=== PATIENT | male | born 1950 | race Caucasian/White ===

== ENCOUNTER 2019-03-26 11:14 | Outpatient (CLI) | payer OTHER | END 2019-03-26 11:15 | disposition home or self-care (01) | LOC: CTENTCT 11:14 → EDSTATUS 16:40 | PROVIDERS: ATTEND Specialist | DX: J32.9 Chronic sinusitis, unspecified (principal) | CPT/HCPCS: 70486 ==

== ENCOUNTER 2019-04-08 07:51 | Day surgery (SDC) | payer OTHER ==
[2019-04-07 13:03] VITALS: BMI 29.0
[2019-04-08] MEDS ORDERED: AFRIN NASAL MIST 15 ML BOT ONE (09:30)
[2019-04-08 09:47] LABS: Hemoglobin 18.7 g/dL (14.0-18.0); Platelet Count 181 thou/uL (130-400)
[2019-04-08] MEDS ORDERED: Midazolam HCl 2 mg/2 ml Vial ONE (09:48)
[2019-04-08] MEDS ORDERED: Bacitracin Zinc Ointment 30 gm TUBE ONE (09:59)
[2019-04-08] MEDS ORDERED: Lidocaine 1% w/Epinephrine 1:100K 20 ML VIAL ONE (09:59)
[2019-04-08] MEDS ORDERED: EPINEPHrine 1 MG/ML AMP ONE (09:59)
[2019-04-08 10:06] LABS: Anion Gap 15 mmol/L (10-20); BUN (Urea Nitrogen) 6 mg/dL (8.4-25.7); Calc. Creatinine Clearance 126 mL/min (70-130); Calcium 10.3 mg/dL (7.8-10.44); Carbon Dioxide 30 mmol/L (23-31); Chloride 95 mmol/L (98-107); Estimated GFR-MDRD Greater than 90; Glucose 149 mg/dL (80-115); Potassium 3.2 mmol/L (3.5-5.1); Sodium 137 mmol/L (136-145)
[2019-04-08] MEDS ORDERED: Fentanyl 100 MCG/2 ML VIAL ONE ×3 (10:10→11:41)
[2019-04-08] MEDS ORDERED: Propofol 500 MG/50 ML VIAL ONE (10:36)
[2019-04-08] MEDS ORDERED: Ondansetron PF 4 MG/2 ML Vial ONE (10:57)
[2019-04-08] MEDS ORDERED: Rocuronium Bromide 10 MG/ML (10ML VIAL) ONE (10:57)
[2019-04-08] MEDS ORDERED: PROPOFOL 200 MG/20 ML VIAL ONE (10:57)
[2019-04-08] MEDS ORDERED: Lidocaine 1% PF 5 ML VIAL ONE (10:57)
[2019-04-08] MEDS ORDERED: PHENYLEPHRINE-NS 100 MCG/ML 10 ML SYRINGE ONE (10:57)
[2019-04-08] MEDS ORDERED: Glycopyrrolate 0.2 MG/ML 5 ML SYRINGE ONE (10:57)
[2019-04-08] MEDS ORDERED: Dexamethasone 20 MG/5 ML VIAL ONE (10:57)
--- NOTE | 2019-04-08 14:17 | OP ---
DATE OF PROCEDURE: 04/08/2019 PREOPERATIVE DIAGNOSES: 1. Deviated septum. 2. Hypertrophic inferior turbinates. 3. Bilateral vocal cord lesions. POSTOPERATIVE DIAGNOSES: 1. Deviated septum. 2. Hypertrophic inferior turbinates. 3. Bilateral vocal cord lesions. PROCEDURES PERFORMED: 1. Bilateral nasal endoscopy with submucosal resection of inferior turbinates. 2. Septoplasty. 3. Microsuspension laryngoscopy with vocal cord biopsy and shaving of laryngeal mass using microscopic visualization. DESCRIPTION OF PROCEDURE: SEPTOPLASTY: After local anesthesia was infiltrated into the submucoperichondrial plane, a standard Ramesh incision was made with a #15 blade down to the level of the septal cartilage. The caudal elevator was used to elevate the mucoperichondrium from the underlying cartilage. We then proceeded beyond the bony cartilaginous junction and elevated the bony periosteum as well. Great attention was paid to the spur to prevent rent formation in the septal flap. A transcartilaginous incision was then made, while preserving an adequate dorsal and caudal cartilaginous strut for tip support. The deformed cartilage was removed and disarticulated from the bony cartilaginous junction and maxillary crest. This was placed in saline and would later be crushed and returned to the mucoperichondrial envelope. We then elevated the contralateral periosteum from the bony cartilaginous region and removed the deformed portions of the bone and bony spurs. The cartilage was then crushed and placed back into the mucoperichondrial envelope and the mucosa was re-approximated with a quilting stitch composed of rapidly absorbent gut suture. The Ramesh incision was also closed with interrupted gut suture. At the completion of the case, Mei splints were placed and suture secured to the caudal septum. BILATERAL NASAL ENDOSCOPY WITH SUBMUCOSAL RESECTION OF INFERIOR TURBINATES: After consent was obtained, the patient was identified, brought to the operating room, and placed on the operating room table in the supine position. Consent was obtained, notifying the patient of the possibility of additional infections, bleeding, brain injury, and eye/orbital injury. The patient was placed on the operating room table, and general endotracheal anesthesia and intravenous access was obtained. The patient was then positioned, prepped and draped for endoscopic sinus surgery. Nasal preparation included trimming nasal vestibular hairs and spraying in topical Afrin. We then placed Afrin topical solution on nasal pledgets and strategically located them intranasally. The perinasal mucosa was injected with 1% lidocaine with 1:100,000 epinephrine in the submucoperichondrial plane of the septum, lateral nasal wall, and anterior to the uncinate. The patient was then prepped and draped in a sterile fashion and positioned for endoscopic sinus surgery. With the 0-degree endoscope, the patient underwent systematic nasal endoscopy. There were no suspicious internasal masses or lesions identified. We then focused our attention to the osteomeatal complex region under the middle turbinate. The inferior turbinates were visualized with a 0 degree endoscope and outfractured with a [place] elevator. The inferior medial aspect was cauterized with the electrocautery. Hemostasis was obtained . After adequate airway was established, we turned our attention to the contralateral side and used a similar procedure. Again, a Keron elevator was used to outfracture inferior turbinates under endoscopic visualization. With a suction cautery, the free inferior medial aspect was cauterized under direct visualization along the length of the inferior turbinate. At this point, we then turned our attention to the contralateral side and proceeded with endoscopic sinus surgery. At the completion of the case, Rice keel splints were placed in the ethmoid cavities after the ethmoidectomy. There were no complications. The patient tolerated the procedure well and was discharged to the recovery room in stable condition prior to return to the preoperative day stay with ultimate discharge home. Prescriptions for pain medication and antibiotics were provided. The patient received intramuscular Depo-Medrol during the case. We then proceeded with laryngoscopy. A Hunsucker tube was placed and the patient was jet ventilated. Under microscopic visualization, we evaluated the larynx and pictures were taken of the larynx before biopsy. Biopsy was made of the left vocal cord inferior lesion and sent for permanent histologic evaluation. We then used a laryngeal shaver to remove bilateral vocal cord lesions that were extensive along both surfaces. 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 Postop pictures were taken. Topical lidocaine with adrenaline was sprayed on the larynx. The patient was awakened, extubated, and taken to recovery room in a stable condition prior to discharge home. Job ID: [id number]
--- NOTE | 2019-04-08 16:53 | EKG ---
Test Reason : PREOP Blood Pressure : / mmHG Vent. Rate : 082 BPM Atrial Rate : 082 BPM P-R Int : 182 ms QRS Dur : 104 ms QT Int : 392 ms P-R-T Axes : 063 042 042 degrees QTc Int : 457 ms Normal sinus rhythm Normal ECG No previous ECGs available Confirmed by DR. Jameel DESOUZA ([id number]) on 04/08/2019 4:52:40 PM Referred By: ULISES Confirmed By:DR. Jameel DESOUZA
== END 2019-04-08 14:20 | disposition home or self-care (01) ==
LOC: SDC 07:51
PROVIDERS: ATTEND Specialist
PROC: 0CBV8ZX Excision of Left Vocal Cord, Via Natural or Artificial Opening Endoscopic, Diagnostic (ICD-10-PCS; principal; 2019-04-08)
PROC: 09BL8ZZ Excision of Nasal Turbinate, Via Natural or Artificial Opening Endoscopic (ICD-10-PCS; principal; 2019-04-08)
PROC: 09BM8ZZ Excision of Nasal Septum, Via Natural or Artificial Opening Endoscopic (ICD-10-PCS; principal; 2019-04-08)
DX: J38.1 Polyp of vocal cord and larynx (principal); J32.9 Chronic sinusitis, unspecified; J34.2 Deviated nasal septum; J34.3 Hypertrophy of nasal turbinates; H61.20 Impacted cerumen, unspecified ear; I10 Essential (primary) hypertension; Z87.891 Personal history of nicotine dependence; Z79.899 Other long term (current) drug therapy
CPT/HCPCS: 36415; 80048; 85014; 85018; 85049; 88305; 93005; 93010; J0171; J1100; J2001; J2250; J2405; J2704; J3010